=== PATIENT | male | born 1955 | race Caucasian/White ===

== ENCOUNTER → 2017-08-24 | Day surgery (SDC) | payer BC ==
[~2017-08-24] MED LIST: Lactated Ringers 1,000 ML IV SCH; Propofol 200 MG/20 ML SDV IV ONE
--- NOTE | 2017-08-27 09:44 | OR ---
DATE OF OPERATION: 08/24/2017 PREOPERATIVE DIAGNOSIS: HISTORY OF POLYPS. POSTOPERATIVE DIAGNOSIS: HISTORY OF POLYPS. SURGEON: Otis Whyte MD PROCEDURE: FULL-LENGTH COLONOSCOPY WITH POLYP REMOVAL X2. 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 COMPLICATIONS: None. SPECIMEN: Hyperplastic polyps x2. FINDINGS: 1. Full-length colonoscopy. 2. Pandiverticulosis, mild to moderate. 3. Two small hyperplastic polyps. RECOMMENDATIONS: Followup colonoscopy in 7 to 8 years pending path reports. INDICATIONS: The patient was in for routine physical. He is due for a routine colonoscopy for followup on polyps. DESCRIPTION OF PROCEDURE: The patient was prepped and draped, placed in the left lateral decubitus position. A lubricated Olympus colonoscope was inserted and easily advanced to the cecum. Direct visualization of the ileocecal valve and appendiceal orifice was accomplished. The bowel prep was adequate. Upon withdrawal of the scope, the cecum and ascending colon were benign. 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 No lesions in the transverse colon. The patient does have 2 small hyperplastic-appearing polyps along the haustral folds and the splenic flexure area, both removed with cold forceps, biopsies in their entirety. The rest of the descending colon was benign. In the sigmoid, I could find no polyps, lesions, ulcerations, masses, or otherwise. No vascular abnormalities or signs of colitis. The rectal vault was unremarkable. Retroflexion of scope in the rectum showed no perianal lesions. Air was suctioned, and the scope was removed without complication. LUIS/ORQUIDEA /[id number]
== END ==
LOC: CC.SDS 09:00
PROVIDERS: ATTEND Family Medicine
DX: Z12.11 Encounter for screening for malignant neoplasm of colon (principal); D12.3 Benign neoplasm of transverse colon; K57.30 Diverticulosis of large intestine without perforation or abscess without bleeding; J45.909 Unspecified asthma, uncomplicated; N40.1 Benign prostatic hyperplasia with lower urinary tract symptoms; R35.1 Nocturia; I10 Essential (primary) hypertension; E78.5 Hyperlipidemia, unspecified; G47.33 Obstructive sleep apnea (adult) (pediatric); Z86.010 Personal history of colon polyps; Z91.041 Radiographic dye allergy status; Z79.899 Other long term (current) drug therapy
CPT/HCPCS: J2704; J7120

== ENCOUNTER 2019-02-06 11:40 | Emergency (ER) | payer BC ==
--- NOTE | 2019-02-06 12:40 | EDM.PDOC ---
ED HPI GENERAL MEDICAL PROBLEM - General Chief Complaint: Headache Stated Complaint: HEAD PAIN Time Seen by Provider: 02/06/19 12:28 - History of Present Illness INITIAL COMMENTS - FREE TEXT/NARRATIVE: Haroon is a 63 year old male who presents ambulatory to the ED with c/o right sided head/facial pain. He reports that starting yesterday afternoon he has had episodes of a sharp stabbing starting in his right parietal area extending down to his right ear and mid jaw. He reports it is a sudden sharp shooting pain and then it goes away. He reports since yesterday afternoon it has been happening approximately 4-5x/hr. He reports that pain at its worst when it is shooting is rated a 7/10. Denies any pain to area between these episodes of the shooting pain. He reports that other than these intense spasms of pain, he really has no other symptoms. Has noticed this morning he does seem to be getting a little dizzy. Denies any headache, visual changes, numbness, tingling, weakness, chest pain, shortness of breath, N/V/D, urinary symptoms. Denies any injury to area. He does report that over the last couple years he has experienced this occasionally, but it always seems to go away. 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 Did have extensive dental work done back in April but has been going regularly for teeth cleaning since then. Denies any tooth pain. Reports PMH of hypertension and hyperlipidemia. Onset Date: 02/05/19 Duration: Intermittent Quality: Reports: Sharp, Stabbing Severity: Severe Associated Symptoms: Reports: No Other Symptoms. Denies: Confusion, Chest Pain , Cough, cough w sputum, Diaphoresis, Fever/Chills, Headaches, Loss of Appetite , Malaise, Nausea/Vomiting, Rash, Seizure, Shortness of Breath, Syncope, Weakness Right Parietal Pain Score (Numeric/FACES): 7 - Related Data Allergies Allergy/AdvReac Type Severity Reaction Status Date / Time Iodinated Contrast Media Allergy Rash Verified 02/06/19 11:55 Home Meds: Home Meds Calcium Carb & Citrate/Vit D3 [Calcium + D3 ER Tablet] 1 tab PO DAILY 08/24/17 [ History] Loratadine/Pseudoephedrine [Claritin-D 12 Hour] 1 tab PO DAILY 08/24/17 [History ] Losartan/Hydrochlorothiazide [Losartan-HCTZ 50-12.5 MG] 1 tab PO DAILY 08/24/17 [History] Rosuvastatin [Crestor] 10 mg PO DAILY 08/24/17 [History] Sildenafil [Viagra] 100 mg PO ASDIRECTED 08/24/17 [History] Aspirin [Halfprin] 81 mg PO DAILY 02/06/19 [History] Past Medical History HEENT History: Reports: Hard of Hearing Cardiovascular History: Reports: High Cholesterol, Hypertension Respiratory History: Reports: Asthma Gastrointestinal History: Reports: Bowel Obstruction Musculoskeletal History: Reports: Fracture, Gout Endocrine/Metabolic History: Reports: Obesity/BMI 30+ Dermatologic History: Reports: Other (See Below) Other Dermatologic History: rash around ankles at times - Past Surgical History Cardiovascular Surgical History: Reports: None Respiratory Surgical History: Reports: None GI Surgical History: Reports: Colonoscopy, Polypectomy Endocrine Surgical History: Reports: None Musculoskeletal Surgical History: Reports: Knee Replacement Dermatological Surgical History: Reports: None Social & Family History - Family History Family Medical History: Noncontributory - Tobacco Use Smoking Status *Q: Never Smoker - Caffeine Use Caffeine Use: Reports: Coffee - Recreational Drug Use Recreational Drug Use: No ED ROS GENERAL - Review of Systems Review Of Systems: ROS reveals no pertinent complaints other than HPI. - Physical Exam Exam: See Below Exam Limited By: No Limitations General Appearance: Alert, WD/WN, No Apparent Distress Eye Exam: Bilateral Eye: EOMI, Normal Fundi, Normal Inspection, PERRL Ears: Normal External Exam, Normal Canal, Hearing Grossly Normal, Normal TMs Nose: Normal Inspection, Normal Mucosa, No Blood Throat/Mouth: Normal Inspection, Normal Lips, Normal Teeth, Normal Gums, Normal Oropharynx, Normal Voice, No Airway Compromise Head Exam: Atraumatic, Normocephalic, Scalp Tenderness (right parietal lobe), Facial Tenderness (right temporal area). No: Scalp Swelling, Scalp Hematoma, Facial Ecchymosis, Facial Swelling Neck: Normal Inspection, Supple, Non-Tender, Full Range of Motion Respiratory/Chest: No Respiratory Distress, Lungs Clear, Normal Breath Sounds, No Accessory Muscle Use, Chest Non-Tender Cardiovascular: Normal Peripheral Pulses, Regular Rate, Rhythm, No Edema, No Gallop, No JVD, No Murmur, No Rub Neuro Exam (Abbreviated): Alert, Oriented, CN II-XII Intact, Normal Cognition, Normal Gait, Normal Reflexes, No Motor/Sensory Deficits Psychiatric: Normal Affect, Normal Mood Skin Exam: Warm, Dry, Intact, Normal Color, No Rash Course - Vital Signs Last Recorded V/S: Last Vital Signs Temp 98.1 F 02/06/19 11:49 Pulse 69 02/06/19 11:49 Resp 20 02/06/19 11:49 BP 136/84 02/06/19 11:49 Pulse Ox 93 L 02/06/19 11:49 - Orders/Labs/Meds Orders: Active Orders 24 hr Category Date Time Status Head wo Cont [CT] Stat Exams 02/06/19 12:37 Taken Labs: Laboratory Tests 02/06/19 Range/Units 12:08 WBC 5.6 (5.0-10.0) 10^3/uL RBC 4.25 L (4.50-6.00) 10^6/uL Hgb 13.9 L (14.0-18.0) g/dL Hct 40.5 (40.0-54.0) % MCV 95.3 H (82.0-94.0) fL MCH 32.7 H (27.0-32.0) pg MCHC 34.3 (33.0-38.0) g/dL RDW Coeff of Anna 12.8 (11.0-15.0) % Plt Count 168 (150-400) 10^3/uL Neut % (Auto) 49.7 (35-85) % Lymph % (Auto) 34.4 (10-55) % [place] % (Auto) 12.3 (0-16) % Eos % (Auto) 3.2 (0-5) % Baso % (Auto) 0.4 (0-3) % Neut # (Auto) 2.76 (1.80-7.00) 10^3/uL Lymph # (Auto) 1.91 (1.00-4.80) 10^3/uL [place] # (Auto) 0.68 (0.00-0.80) 10^3/uL Eos # (Auto) 0.18 (0.00-0.45) 10^3/uL Baso # (Auto) 0.02 10^3/uL ESR 9 (0-15) mm/hr Departure - Departure Time of Disposition: 14:17 Disposition: Home, Self-Care 01 Condition: Fair Clinical Impression: Head and face pain - Discharge Information *PRESCRIPTION DRUG MONITORING PROGRAM REVIEWED*: No *COPY OF PRESCRIPTION DRUG MONITORING REPORT IN PATIENT MANDY: No Referrals: Otis Whyte MD [Primary Care Provider] - Forms: ED Department Discharge Additional Instructions: - Recommend 800 mg ibuprofen every 8 hours as needed. Alternate with 1000 mg Tylenol (acetaminophen) every 6 hours. - May try to ice affected area to see if this improves symptoms - No strenuous activity until symptoms improve - If symptoms persist or worsen, recommend follow up for recheck tomorrow. Will proceed with CTA of brain if symptoms persist. - Otherwise follow up 5-7 days with PCP for recheck - Return to ED for any emergent needs - My Orders Last 24 Hours: My Active Orders 02/06/19 12:37 Head wo Cont [CT] Stat - Assessment/Plan Last 24 Hours: My Active Orders 02/06/19 12:37 Head wo Cont [CT] Stat
== END 2019-02-06 14:26 | disposition home or self-care (01) ==
LOC: CC.ED 11:40
DX: R51 Headache (principal); I10 Essential (primary) hypertension; E66.9 Obesity, unspecified; E78.5 Hyperlipidemia, unspecified; J45.909 Unspecified asthma, uncomplicated; Z87.891 Personal history of nicotine dependence; Z79.899 Other long term (current) drug therapy; Z91.041 Radiographic dye allergy status; Z79.82 Long term (current) use of aspirin
CPT/HCPCS: 36415; 70450; 85025; 85651; 99284-25

== ENCOUNTER 2019-11-20 09:50 | Emergency (ER) | payer BC ==
[2019-11-20 10:31] LABS: PTT,PARTIAL THROMBOPLSTIN TIME 23.9 SEC (23.2-32.3)
--- NOTE | 2019-11-20 10:36 | EDM.PDOC ---
ED HPI GENERAL MEDICAL PROBLEM - General Chief Complaint: Chest Pain Stated Complaint: CP Time Seen by Provider: 11/20/19 10:15 Source of Information: Reports: Patient History Limitations: Reports: No Limitations - History of Present Illness INITIAL COMMENTS - FREE TEXT/NARRATIVE: States that he was doing well until this morning on his drive to town when he developed a sharp twinge to the left upper chest wall. He states that it comes and goes in a few seconds. He denies any increase in SOB, no diaphoresis, nausea or edema. Denies any recent injury, pushing, pulling, or lifting. He states that they started about 6:30 this AM when he was driving to town. He describes it as a sharp spasm that lasts a few seconds and then releases and is gone. He had 3 driving to town and has about 4 since then. Has had a stress test recently that was negative. Onset: Today Location: Reports: Chest Associated Symptoms: Reports: No Other Symptoms. Denies: Cough, Diaphoresis, Nausea/Vomiting, Shortness of Breath, Weakness Left Upper Chest Pain Score (Numeric/FACES): 7 - Related Data Allergies Allergy/AdvReac Type Severity Reaction Status Date / Time Iodinated Contrast Media Allergy Rash Verified 11/20/19 10:00 Home Meds: Home Meds Calcium Carb, Citrate/Vit D3 [Calcium + D3 ER Tablet] 1 tab PO DAILY 08/24/17 [History] Loratadine/Pseudoephedrine [Claritin-D 12 Hour] 1 tab PO BID 08/24/17 [History] Losartan/Hydrochlorothiazide [Losartan-HCTZ 50-12.5 MG] 1 tab PO DAILY 08/24/17 [History] Rosuvastatin [Crestor] 10 mg PO DAILY 08/24/17 [History] Sildenafil [Viagra] 100 mg PO ASDIRECTED 08/24/17 [History] Aspirin [Halfprin] 81 mg PO DAILY 02/06/19 [History] Albuterol [Ventolin HFA] 1 each INH ASDIRECTED PRN 05/20/19 [History] Budesonide/Formoterol [Symbicort 160-4.5 MCG] 2 puff INH BID 05/20/19 [History] Triamcinolone Acetonide [Triamcinolone Acetonide 0.1% Oint] 1 each TOP BID PRN 05/20/19 [History] Fluticasone Furoate [Arnuity Ellipta] 1 puff INH DAILY 11/20/19 [History] Fluticasone Propionate [Flonase] 2 spray NASBOTH BID 11/20/19 [History] Ipratropium [Atrovent 0.06% Nasal Center] 2 spray NASBOTH BID 11/20/19 [History] Montelukast Sodium 10 mg PO DAILY 11/20/19 [History] Tiotropium [place] [Spiriva Respimat] 2 inh INH DAILY 11/20/19 [History] Past Medical History HEENT History: Reports: Allergic Rhinitis, Hard of Hearing Cardiovascular History: Reports: High Cholesterol, Hypertension Respiratory History: Reports: Asthma Gastrointestinal History: Reports: Bowel Obstruction Musculoskeletal History: Reports: Fracture, Gout Endocrine/Metabolic History: Reports: Obesity/BMI 30+ Dermatologic History: Reports: Other (See Below) Other Dermatologic History: rash around ankles at times - Past Surgical History Cardiovascular Surgical History: Reports: None Respiratory Surgical History: Reports: None GI Surgical History: Reports: Colonoscopy, Hernia, Abdominal, Polypectomy Endocrine Surgical History: Reports: None Musculoskeletal Surgical History: Reports: Knee Replacement Dermatological Surgical History: Reports: None Social & Family History - Family History Family Medical History: Noncontributory - Tobacco Use Smoking Status *Q: Never Smoker - Caffeine Use Caffeine Use: Reports: Coffee - Recreational Drug Use Recreational Drug Use: No - Living Situation & Occupation Living situation: Reports: , with Spouse Occupation: Employed ED ROS GENERAL - Review of Systems Review Of Systems: See Below Constitutional: Denies: Fever, Chills HEENT: Reports: No Symptoms Respiratory: Reports: No Symptoms Cardiovascular: Reports: Chest Pain. Denies: Edema GI/Abdominal: Reports: No Symptoms Musculoskeletal: Reports: No Symptoms Skin: Reports: No Symptoms Neurological: Reports: No Symptoms ED EXAM, GENERAL - Physical Exam Exam: See Below Exam Limited By: No Limitations General Appearance: Alert, WD/WN Ears: Normal External Exam, Normal Canal, Normal TMs Throat/Mouth: Normal Inspection, Normal Oropharynx Head: Atraumatic, Normocephalic Neck: Normal Inspection, Supple, Non-Tender, Full Range of Motion Respiratory/Chest: No Respiratory Distress, Lungs Clear, Normal Breath Sounds Cardiovascular: Normal Peripheral Pulses, Regular Rate, Rhythm, No Edema GI/Abdominal: Normal Bowel Sounds, Soft, Non-Tender Extremities: Normal Inspection, No Pedal Edema, Normal Capillary Refill Neurological: Alert, Oriented Skin Exam: Warm, Dry, Intact Course - Vital Signs Last Recorded V/S: Last Vital Signs Temp 98.4 F 11/20/19 10:36 Pulse 71 11/20/19 10:36 Resp 18 11/20/19 10:36 BP 139/87 11/20/19 10:36 Pulse Ox 97 11/20/19 10:36 - Orders/Labs/Meds Orders: Active Orders 24 hr Category Date Time Status Chest 2V [CR] Stat Exams 11/20/19 09:58 Taken Labs: Laboratory Tests 11/20/19 11/20/19 11/20/19 Range/Units 09:58 09:58 09:58 WBC 5.2 (5.0-10.0) 10^3/uL RBC 4.31 L (4.50-6.00) 10^6/uL Hgb 14.0 (14.0-18.0) g/dL Hct 42.0 (40.0-54.0) % MCV 97.4 H (82.0-94.0) fL MCH 32.5 H (27.0-32.0) pg MCHC 33.3 (33.0-38.0) g/dL RDW Coeff of Anna 13.1 (11.0-15.0) % Plt Count 166 (150-400) 10^3/uL Neut % (Auto) 52.4 (35-85) % Lymph % (Auto) 31.5 (10-55) % [place] % (Auto) 13.2 (0-16) % Eos % (Auto) 2.5 (0-5) % Baso % (Auto) 0.4 (0-3) % Neut # (Auto) 2.73 (1.80-7.00) 10^3/uL Lymph # (Auto) 1.64 (1.00-4.80) 10^3/uL [place] # (Auto) 0.69 (0.00-0.80) 10^3/uL Eos # (Auto) 0.13 (0.00-0.45) 10^3/uL Baso # (Auto) 0.02 10^3/uL PT 10.4 (9.7-12.3) SEC INR 1.03 (0.92-1.18) APTT 23.9 (23.2-32.3) SEC D-Dimer, Quantitative 0.34 (0.00-0.50) Sodium 142 (136-145) mEq/L Potassium 4.1 (3.5-5.0) mEq/L Chloride 106 (98-106) mEq/L Carbon Dioxide 27 (21-32) mmol/L BUN 19 H (7-18) mg/dL Creatinine 1.0 (0.7-1.3) mg/dL Est Cr Clr Drug Dosing 79.48 mL/min Estimated GFR (MDRD) > 60 (>=60) mL/min Glucose 105 H (75-99) mg/dL Calcium 9.4 (8.4-10.1) mg/dL Lactate Dehydrogenase 176 (100-190) U/L Creatine Kinase 98 (35-232) U/L Troponin I < 0.017 (0.00-0.06) ng/mL NT-Pro-B Natriuret Pep 65 (0-1000) pg/mL Meds: Medications Discontinued Medications Generic Name Dose Route Start Last Admin Trade Name Freq PRN Reason Stop Dose Admin Triamcinolone Acetonide 40 mg 11/20/19 10:59 11/20/19 11:05 Kenalog-40 IM 11/20/19 11:00 40 mg ONETIME ONE Administration - Re-Assessments/Exams Free Text/Narrative Re-Assessment/Exam: 11/20/19 1045 In to discuss normal labs and CXR, EKG. will discharge home at this time. Departure - Departure Time of Disposition: 11:01 Disposition: Home, Self-Care 01 Condition: Good Clinical Impression: Muscle spasm, Seasonal allergies Referrals: PCP,None [Ordering Only Provider] - Forms: ED Department Discharge Additional Instructions: No heavy lifting or pulling keep appt with pulmonology If pain changes or gets worse then needs to return to the ER Sepsis Event Note (ED) - Evaluation Sepsis Screening Result: No Definite Risk - Focused Exam Vital Signs: Vital Signs Temp Pulse Resp BP Pulse Ox 11/20/19 10:36 98.4 F 71 18 139/87 97 11/20/19 10:14 98.7 F 64 18 150/92 H 96 11/20/19 09:54 98.4 F 71 18 138/84 97 - Problem List & Annotations (1) Muscle spasm SNOMED Code(s): 51368108 Code(s): M62.838 - OTHER MUSCLE SPASM Status: Acute Priority: High - Problem List Review Problem List Initiated/Reviewed/Updated: Yes - My Orders Last 24 Hours: My Active Orders 11/20/19 09:58 Chest 2V [CR] Stat - Assessment/Plan Last 24 Hours: My Active Orders 11/20/19 09:58 Chest 2V [CR] Stat
[2019-11-20 10:37] LABS: CHLORIDE,CL 106 mEq/L (98-106); SODIUM,NA 142 mEq/L (136-145)
[2019-11-20] MEDS ORDERED: Triamcinolone Acetonide 40 MG/ML 1 ML MDV IM ONE (10:59)
== END 2019-11-20 11:10 | disposition home or self-care (01) ==
LOC: CC.ED 09:50
DX: M62.838 Other muscle spasm (principal); J30.2 Other seasonal allergic rhinitis; E78.00 Pure hypercholesterolemia, unspecified; I10 Essential (primary) hypertension; J45.909 Unspecified asthma, uncomplicated; M10.9 Gout, unspecified; Z79.82 Long term (current) use of aspirin; E66.9 Obesity, unspecified; Z68.41 Body mass index [BMI] 40.0-44.9, adult; Z91.041 Radiographic dye allergy status
CPT/HCPCS: 36415; 71046; 80048; 82550; 83615; 83880; 84484; 85025; 85379; 85610; 85730; 93005; 96372; 99285-25; J3301

== ENCOUNTER 2025-01-09 08:45 | Day surgery (SDC) | payer MEDICARE, BC ==
[2025-01-09] MEDS: Lactated Ringers 1,000 ML IV SCH (09:13)
[2025-01-09] MEDS ORDERED: Midazolam 1 MG/ML 2 ML SDV ONE (09:33)
[2025-01-09] MEDS ORDERED: Ketamine 200 MG/20 ML MDV ONE (09:33)
[2025-01-09] MEDS ORDERED: Propofol 200 MG/20 ML SDV ONE (09:33)
[2025-01-09] MEDS ORDERED: fentaNYL 50 MCG/ML SDV ONE (09:33)
== END 2025-01-09 10:43 | disposition home or self-care (01) ==
LOC: CC.SDS 08:45
PROVIDERS: ATTEND Family Medicine
DX: Z12.11 Encounter for screening for malignant neoplasm of colon (principal); K63.89 Other specified diseases of intestine; K57.30 Diverticulosis of large intestine without perforation or abscess without bleeding; E78.5 Hyperlipidemia, unspecified; Z91.041 Radiographic dye allergy status; Z79.82 Long term (current) use of aspirin; Z79.899 Other long term (current) drug therapy; Z86.0100 Personal history of colon polyps, unspecified
CPT/HCPCS: 00811; 45380; 88305; J2250; J2704; J3010; J3490; J7120